=== PATIENT | female | born 1960 | race American Indian/Alaskan Native ===

== ENCOUNTER 2020-03-26 15:52 | Outpatient (CLI) | payer OTHER | END 2020-03-26 15:53 | disposition home or self-care (01) | LOC: SPVWC 15:52 | PROVIDERS: ATTEND Internal Medicine | DX: Z12.31 Encounter for screening mammogram for malignant neoplasm of breast (principal) | CPT/HCPCS: 77067 ==

== ENCOUNTER 2020-04-28 15:21 | Outpatient (CLI) | payer OTHER ==
--- NOTE | 2020-04-28 17:01 | Ultrasound Report ---
ULTRASOUND BREAST LEFT LIMITED, 04/28/2020 CLINICAL INFORMATION / INDICATION: ABNORMAL/INCONCLUSIVE FINDINGS ON DIAG IMAGING OF BRST. TECHNIQUE: Targeted ultrasound evaluation was performed of the area of interest. COMPARISON: Prior mammograms including 03/26/2020 and 04/11/2018 FINDINGS: Sonographic evaluation of the left breast, lower inner quadrant demonstrates a hypoechoic solid mass in the 8:00 position, 6 cm from the nipple. There is an echogenic area within the mass consistent wit h biopsy clip. This mass measures 13 mm x 1.0 x 0.4 cm. Although overall features are more suggestive of a benign process, the concern is that this mass continues to grow. I do not have pathology from p rior biopsy. Given the continued interval growth of this lesion, surgical excision, or the very least , rebiopsy is suggested. IMPRESSION: Low suspicion for malignancy. However, repeat biopsy or surgical excision is recommended for solid mass in the left breast at 8:00 due to continued growth. Follow up recommendation: Routine yearly A normal or "negative" report should not preclude biopsy or follow-up of a clinically suspicious find ing. Signer Name: Neida Martínez MD Signed: 04/28/2020 4:57 PM Workstation Name: [id number]
== END 2020-04-28 15:22 | disposition home or self-care (01) ==
LOC: SPVWC 15:21
PROVIDERS: ATTEND Internal Medicine
DX: N63.24 Unspecified lump in the left breast, lower inner quadrant (principal); R92.8 Other abnormal and inconclusive findings on diagnostic imaging of breast

== ENCOUNTER 2021-07-28 11:36 | Outpatient (CLI) | payer OTHER | END 2021-07-28 11:37 | disposition home or self-care (01) | LOC: SPVWC 11:36 | PROVIDERS: ATTEND Internal Medicine | DX: Z12.31 Encounter for screening mammogram for malignant neoplasm of breast (principal) | CPT/HCPCS: 77067 ==